=== PATIENT | female | born 1975 | race Caucasian/White ===

== ENCOUNTER 2022-08-28 20:10 | Emergency (ER) | payer MEDICAID, SELFPAY ==
[2022-08-28 20:12] VITALS: BP 138/87; PULSE 99; RESP 16; TEMP 36.8; O2SAT 96; BMI 41.5
--- NOTE | 2022-08-28 20:15 | W.ED.AMS ---
HPI - Altered Mental Status General: Chief Complaint: General Medical Stated Complaint: AMS Time Seen by Provider: 08/28/22 20:13 History of Present Illness: Ms. Martinez is a 47-year-old lady with history of opioid use disorder and currently IV heroin abuse presented to the emergency department due to leg pain where she has been injecting. She reports onset of worsening right leg pain a number of months ago however became more concerned recently as she was reading and thought it could be a blood clot. Endorses hard bumps where she injects as well as increased pain in the calf. Intensity symptoms have worsened and now become moderate to severe with ambulation. Denies fevers, shortness of breath, chest pain or other signs systemic illness. No history of blood clots reported. No other specific changes in health, exacerbating, or alleviating factors identified. Onset (ago): week(s) Severity: moderate Consistency of symptoms: Getting Worse Context: drug abuse Associated symptoms: Deny homicidal ideation or suicidal ideation Review of Systems General: Reports: 10 or more systems reviewed and unremarkable except in HPI and below Psych: Denies: suicidal ideation or homicidal ideation PFSH ED PFSH: Medical History Opioid abuse Surgical History History of section History of common bile duct surgery History of tubal ligation Family History Other Hypertension Denies family history of Bleeding disorder Social History Substance/Drug Use: current Physical Exam Const: COMMON NORMALS: alert GENERAL APPEARANCE: cooperative and well developed HENMT: COMMON NORMALS: normocephalic and atraumatic HEAD & SCALP: normocephalic and atraumatic Eye: COMMON NORMALS: conjunctivae normal CONJUNCTIVA: Yes conjunctivae normal SCLERA: sclerae normal Neck/C-Spine: COMMON NORMALS: supple GENERAL: Yes trachea midline Resp: COMMON NORMALS: normal respiratory effort and clear to auscultation bilaterally EFFORT & INSPECTION: Yes able to speak in complete sentences AUSCULTATION: clear to auscultation bilaterally Cardio: COMMON NORMALS: regular rate, regular rhythm and No murmurs present (Cardio) RATE: regular rate RHYTHM: regular rhythm GI: COMMON NORMALS: Soft to palpation PALPATION: Yes Soft to palpation and No Tenderness to palpation present (GI) Extremity: NARRATIVE EXTREMITY EXAM: Bilateral lower extremity edema, there are few areas scattered areas of induration, mild tenderness to palpation of the right knee no evidence of septic joint or joint effusion. GENERAL: Yes normal exam except as noted and Yes edema Neuro: COMMON NORMALS: moves all extremities SENSORIUM/ORIENTATION: Yes alert and No Orientation impaired Psych: COMMON NORMALS: mental status grossly normal and Normal thought process present THOUGHT PROCESS: Normal thought process present Course Vital Signs: Vital signs: Vital Signs Temperature 98.2 F 08/28/22 20:12 Pulse Rate 85 08/28/22 22:41 Respiratory Rate 18 08/28/22 22:41 Blood Pressure 133/82 08/28/22 22:41 Pulse Oximetry 96 08/28/22 22:41 Oxygen Delivery Me thod 08/28/22 20:12 MDM - Altered Mental Status Medical Decision Making 47-year-old lady presenting with neck pain worse on the right in the context of IV drug use. Exam as above.. No leukocytosis, inflammatory markers are essentially negative. No foreign body identified on x-rays, negative ultrasound for DVT. On additional discussion the patient does have a history of lower extremity edema and had improvement with Lasix. She desires to try this again. Edema may be a reason explanation for symptoms though certainly IV drug abuse does not help. I discussed IV drug abuse cessation with the patient. The results of ED evaluation were discussed with the patient including prescriptions and/or symptomatic cares (if applicable) including appropriate and responsible use, followup plan, and return precautions. The patient verbalized understanding and felt safe for discharge. Medical Records I reviewed the patient's medical records. Lab Data I reviewed the patient's lab results. 08/28/22 21:03 08/28/22 21:03 Radiology Impressions Tibia/Fibula X-Ray 08/28/22 20:22 IMPRESSION: 1. Possible posterior malleolar mildly displaced fracture on the lateral view versus an exophytic bony lesion, please correlate clinically, CT scan could further evaluate this. 2. Negative for radiodense foreign body. Venous Duplex 08/28/22 20:22 IMPRESSION: Negative for deep venous thrombosis. Ankle X-Ray 08/28/22 21:12 IMPRESSION: 21 mm by 5.9 mm calcification seen along the posterior malleolus appears to reflect a small osteochondroma. Laboratory Results WBC 6.5 10^3/uL (4.0-10.0) 08/28/22 21:03 RBC 4.09 10^6/uL (4.1-5.3) L 08/28/22 21:03 Hgb 12.2 g/dL (11.5-15.3) 08/28/22 21:03 Hct 37.8 % (37.0-47.0) 08/28/22 21:03 MCV 92.4 fl (81-99) 08/28/22 21:03 MCH 29.8 pg (28.0-34.0) 08/28/22 21: MCHC 32.3 g/dL (30.0-36.0) 08/28/22 21:03 RDW 12.8 % (12.1-15.1) 08/28/22 21:03 Plt Count 263 10^3/cmm (130-400) 08/28/22 21:03 MPV 10.7 fL (7.4-10.4) H 08/28/22 21:03 Neut % (Auto) 82.2 % 08/28/22 21: Lymph % (Auto) 13.2 % 08/28/22 21:03 [place] % (Auto) 2.9 % 08/28/22 21:03 Eos % (Auto) 0.5 % 08/28/22 21: Baso % (Auto) 0.9 % 08/28/22:03 Neut # (Auto) 5.37 10^3/uL (1.8-7.7) 08/28/22 21:03 Lymph # (Auto) 0.9 10^3/uL (0.8-4.8) 08/28/22 21:03 [place] # (Auto) 0.2 10^3/uL (0.2-0.9) 08/28/22 21:03 Eos # (Auto) 0.0 10^3/uL (0.0-0.8) 08/28/22 21:03 Baso # (Auto) 0.1 10^3/uL (0.0-0.1) 08/28/22 21:03 Nucleated RBC % (auto) 0 % 08/28/22 21:03 Nucleated RBCs # 0.0 /100WBC 08/28/22 21:03 ESR 9 mm/hr (0-15) 08/28/22 21:03 Sodium 136 mmol/L (136-145) 08/28/22 21:03 Potassium 4.2 mmol/L (3.5-5.1) 08/28/22 21:03 Chloride 101 mmol/L (98-107) 08/28/22 21:03 Carbon Dioxide 27 mmol/L (22-29) 08/28/22 21:03 Anion Gap 12.2 (5-19) 08/28/22 21:03 BUN 16 mg/dL (6-20) 08/28/22 21:03 Creatinine 0.8 mg/dL (0.5-0.9) 08/28/22 21:03 GFR Calculation 77.2 mL/min (90-130) L 08/28/22 21:03 Glucose 100 mg/dL (65-115) 08/28/22 21:03 Calculated Osmolality 283 mOsm/kg (285-295) L 08/28/22 21:03 Calcium 8.8 mg/dL (8.5-10.5) 08/28/22 21:03 Total Bilirubin 0.4 mg/dL (0.15-1.2) 08/28/22 21:03 AST 13 U/L (0-32) 08/28/22 21:03 ALT 9 U/L (0-33) 08/28/22 21:03 Alkaline Phosphatase 73 U/L (35-105) 08/28/22 21:03 C-Reactive Protein 5.1 mg/L (0.0-4.9) H 08/28/22 21:03 Total Protein 7.6 g/dL (6.6-8.7) 08/28/22 21:03 Albumin 4.2 g/dL (3.5-5.2) 08/28/22 21:03 Globulin 3.4 g/dL (1.3-4.6) 08/28/22 21:03 HCG, Qual Negative (Negative) 08/28/22 21:55 Discharge Plan Discharge Patient Disposition: Home Clinical Impression: Leg pain, Edema, peripheral, IVDU (intravenous drug user), Opioid abuse Condition: Stable Prescriptions: New Lasix 40 mg tablet 40 mg PO QAM Qty: 20 0RF potassium chloride 10 mEq tablet extended release 10 meq PO DAILY Qty: 20 0RF No Action dextroamphetamine-amphetamine [Adderall] 10 mg tablet 10 mg PO BID Rx Instructions: administer doses at least 4-6 hours apart buprenorphine HCl 2 mg tablet, sublingual 2 mg sublingual .TIB Discharge Orders: Discharge ED (Routine); Ordered 08/28/22 Ordered By: Eliecer Butler Other Ambulatory Orders: Basic Metabolic Panel (Routine) Timeframe: 1 Week Facility: [facility] - Location: Lab - Main Lab Ordered By: Eliecer Butler Referrals: Jayme Roy, MONAC [Primary Care Provider] - Discharge Diet: Low Salt and Low Fat Discharge Activity: Increase activity as tolerated Patient Instructions: Furosemide (By mouth) (Lasix), Leg Edema (ED), Leg Pain (ED), Opioid Use Disorder (ED) Activity Restrictions/Additional Instructions: Thank you for visiting the emergency department. You were seen and evaluated for leg pain. The exact cause of your symptoms is unclear though may be related to musculoskeletal pain and edema. Given improvement in the past with Lasix I will prescribe this. This requires follow-up with repeat laboratory testing as discussed. I will place an order so you may get the repeat laboratory studies done at our lab. You should also follow-up with a primary care provider. Please stop abusing opioids, failure to stop abusing opioids will likely lead to or worse. Return to the emergency department for anything that you are concerned about and feel needs emergency department evaluation. Coding Level of Care Code ED Powerhouse Operator for Radha Manuel
--- NOTE | 2022-08-28 20:22 | USR_ITS ---
PROCEDURE INFORMATION: Exam: US Duplex Lower Extremity Veins, Bilateral Exam date and time: 08/28/2022 9:07 PM Age: 47 years old Clinical indication: Leg, upper and leg, lower; Bilateral; Patient HX: Ble edema and pain x 6 months. No history of dvt per patient. ; Additional info: Swelling, pain r>l, ivdu TECHNIQUE: Imaging protocol: Real-time Duplex ultrasound of the bilateral extremities with 2-D camara scale, color Doppler flow and spectral waveform analysis with image documentation. Complete exam focused on the bilateral lower extremity veins. COMPARISON: CR (LOW EXM, ) 08/28/2022 8:43 PM FINDINGS: Right deep veins: Unremarkable. The common femoral, femoral, proximal profunda femoral and popliteal veins are patent without thrombus. Normal Doppler waveforms. Normal compressibility and/or augmentation response. Right superficial veins: Saphenofemoral junction is patent without thrombus. Left deep veins: Unremarkable. The common femoral, femoral, proximal profunda femoral and popliteal veins are patent without thrombus. Normal Doppler waveforms. Normal compressibility and/or augmentation response. Left superficial veins: Saphenofemoral junction is patent without thrombus. Soft tissues: Bilateral lower extremity subcutaneous [place]. US/[place] [id number] IMPRESSION: Negative for deep venous thrombosis.
--- NOTE | 2022-08-28 20:22 | XRR_ITS ---
PROCEDURE INFORMATION: Exam: XR Right Tibia and Fibula Exam date and time: 08/28/2022 8:43 PM Age: 47 years old Clinical indication: Pain; Knee; Right; Additional info: Ivdu, ? foreign body calf TECHNIQUE: Imaging protocol: Radiologic exam of the Right tibia and fibula. Views: 2 views. COMPARISON: No relevant prior studies available. FINDINGS: Bones/joints: Possible posterior malleolar mildly displaced fracture on the lateral view versus an exophytic bony lesion, please correlate clinically, CT scan could further evaluate this. Soft tissues: Normal. XR/XR tibia fibula RT 2V [id number] IMPRESSION: 1. Possible posterior malleolar mildly displaced fracture on the lateral view versus an exophytic bony lesion, please correlate clinically, CT scan could further evaluate this. 2. Negative for radiodense foreign body.
--- NOTE | 2022-08-28 21:12 | XRR_ITS ---
PROCEDURE INFORMATION: Exam: XR Right Ankle Exam date and time: 08/28/2022 9:22 PM Age: 47 years old Clinical indication: Pain; Ankle; Right; Additional info: Abnormal appearance on xray, reeval TECHNIQUE: Imaging protocol: Radiologic exam of the Right ankle. Views: 3 or more views. COMPARISON: CR (LOW EXM, ) 08/28/2022 8:43 PM FINDINGS: Bones/joints: 21 mm by 5.9 mm calcification seen along the posterior malleolus appears to reflect a small osteochondroma. Soft tissues: Normal. XR/XR ankle RT min 3V* [id number] IMPRESSION: 21 mm by 5.9 mm calcification seen along the posterior malleolus appears to reflect a small osteochondroma.
[2022-08-28 21:17] LABS: Basophils # 0.1 10^3/uL (0.0-0.1); Basophils % 0.9 %; Eosinophils % 0.5 %; Hematocrit 37.8 % (37.0-47.0); Hemoglobin 12.2 g/dL (11.5-15.3); Lymphocytes # 0.9 10^3/uL (0.8-4.8); Lymphocytes % 13.2 %; Mean Corpuscular HGB Conc 32.3 g/dL (30.0-36.0); Mean Corpuscular Hemoglobin 29.8 pg (28.0-34.0); Mean Corpuscular Volume 92.4 fl (81-99); Mean Platelet Volume 10.7 fL (7.4-10.4); Monocytes # 0.2 10^3/uL (0.2-0.9); Monocytes % 2.9 %; Neutrophils # 5.37 10^3/uL (1.8-7.7); Neutrophils % 82.2 %; Nucleated Red Blood Cells % 0 %; Platelet Count 263 10^3/cmm (130-400); Red Blood Count 4.09 10^6/uL (4.1-5.3); Red Cell Distribution Width 12.8 % (12.1-15.1); White Blood Count 6.5 10^3/uL (4.0-10.0)
[2022-08-28 21:27] LABS: Erythrocyte Sedimentation Rate 9 mm/hr (0-15)
[2022-08-28 21:40] LABS: Alanine Aminotransferase 9 U/L (0-33); Albumin Level 4.2 g/dL (3.5-5.2); Alkaline Phosphatase 73 U/L (35-105); Anion Gap 12.2 (5-19); Aspartate Amino Transferase 13 U/L (0-32); Blood Urea Nitrogen 16 mg/dL (6-20); Calcium 8.8 mg/dL (8.5-10.5); Carbon Dioxide 27 mmol/L (22-29); Chloride 101 mmol/L (98-107); Globulin 3.4 g/dL (1.3-4.6); Glomerular Filtration Rate 77.2 mL/min (90-130); Glucose 100 mg/dL (65-115); Osmolality Calculated 283 mOsm/kg (285-295); Potassium 4.2 mmol/L (3.5-5.1); Sodium 136 mmol/L (136-145); Total Bilirubin 0.4 mg/dL (0.15-1.2); Total Protein 7.6 g/dL (6.6-8.7)
[2022-08-28 21:42] LABS: C Reactive Protein 5.1 mg/L (0.0-4.9)
[2022-08-28 22:00] VITALS: BP 108/86; PULSE 88; RESP 18; O2SAT 96
[2022-08-28 22:06] LABS: HCG Qualitative Urine. Negative (Negative)
[2022-08-28 22:41] VITALS: BP 133/82; PULSE 85; RESP 18; O2SAT 96
== END 2022-08-28 22:42 | disposition home or self-care (01) ==
PROVIDERS: Emergency Provider Emergency Medicine; PCP Nurse Practitioner
DX: M79.604 Pain in right leg (principal); R60.0 Localized edema; F11.10 Opioid abuse, uncomplicated
CPT/HCPCS: 73590; 73610; 80053; 81025; 85025; 85651; 86140; 87040; 93970; 99284

== ENCOUNTER 2023-08-05 19:15 | Emergency (ER) | payer SELFPAY ==
[2023-08-05 19:18] VITALS: BP 152/90; PULSE 85; RESP 22; TEMP 36.5; O2SAT 97; BMI 38.2
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
== END 2023-08-05 20:12 | disposition home or self-care (01) ==
PROVIDERS: Emergency Provider Internal Medicine; PCP Nurse Practitioner
DX: Z04.1 Encounter for examination and observation following transport accident (principal); F10.10 Alcohol abuse, uncomplicated
CPT/HCPCS: 99281

== ENCOUNTER 2023-12-17 04:50 | Emergency (ER) | payer SELFPAY ==
[2023-12-17 04:51] VITALS: BP 147/99; PULSE 98; RESP 24; TEMP 36.7; O2SAT 91; BMI 38.2
--- NOTE | 2023-12-17 05:15 | W.ED.GENADLT ---
Documented by User: Janusz Villegas DO 12/17/23 05:19 HPI - General Adult General: Chief complaint: General Medical Stated complaint: withdrawal Time Seen by Provider: 12/17/23 04:51 History of Present Illness: Patient presents here by [facility] with complaints of fentanyl withdrawals. Patient says she has been shooting up in her legs for the last 4 years and she shoots all kinds of things up her legs fentanyl or heroin up to 10-15 times a day but she has not done either for the last 11 days. Patient has been taking some Xanax which she says helped with withdrawals. Patient does appear anxious is breathing fast and has tremors. Patient is alert and oriented x 4. Patient ambulated from the cot to the stretcher and then to the bathroom without difficulty. Patient says she has a appointment at the methadone clinic at 6 AM this morning to get established. Review of Systems General: Reports: 10 or more systems reviewed and unremarkable except in HPI and below PFSH ED PFSH: Medical History Opioid abuse Surgical History History of tubal ligation History of section History of common bile duct surgery Family History Other Hypertension Denies family history of Bleeding disorder Social History Substance/Drug Use: current Female Reproductive History: Date of last menstrual period: 12/17/23 Physical Exam Const: COMMON NORMALS: no acute distress, average body habitus, patient oriented x3, no limitations, healthy appearing, alert and well nourished HENMT: COMMON NORMALS: normocephalic, atraumatic, hearing grossly normal bilaterally and external ears normal HEAD & SCALP: normocephalic and atraumatic EXTERNAL EAR: Yes external ears normal Neck/C-Spine: COMMON NORMALS: no JVD Chest: COMMONS NORMALS: normal inspection of the chest and normal palpation of entire chest wall Resp: COMMON NORMALS: normal respiratory effort, No retractions, No use of accessory muscles and clear to auscultation bilaterally AUSCULTATION: clear to auscultation bilaterally Cardio: COMMON NORMALS: no JVD, regular rate, regular rhythm, S1 normal heart sound present, S2 normal heart sound present, No gallops present (Cardio), No clicks present (Cardio), No murmurs present (Cardio) and No rub (Cardio) RATE: regular rate RHYTHM: regular rhythm HEART SOUNDS: S1 normal heart sound present and S2 normal heart sound present GI: COMMON NORMALS: Normal to inspection, nondistended, normoactive bowel sounds present, Soft to palpation, non-tender, No hepatosplenomegaly present and no masses PALPATION: Yes Soft to palpation and Yes No hepatosplenomegaly present Neuro: COMMON NORMALS: patient oriented x3 SENSORIUM/ORIENTATION: Yes alert Course Vital Signs: Vital signs: Vital Signs Temperature 98.1 F 12/17/23 07:59 Pulse Rate 87 12/17/23 07:59 Respiratory Rate 16 12/17/23 07:59 Blood Pressure 154/116 12/17/23 07:59 Pulse Oximetry 100 12/17/23 07:59 Oxygen Delivery Me thod Room Air 12/17/23 04:51 [facility] - General Adult Lab Data 12/17/23 05:55 12/17/23 05:55 Laboratory Results WBC 5.12 10^3/uL (3.29-11.43) 12/17/23 05:55 RBC 4.30 10^6/uL (3.85-5.65) 12/17/23 05:55 Hgb 12.60 g/dL (11.27-16.99) 12/17/23 05:55 Hct 38.3 % (36-47) 12/17/23 05:55 MCV 89.1 fl (85-98) 12/17/23 05:55 MCH 29.3 pg (27-33) 12/17/23 05:55 MCHC 32.9 g/dL (30-55) 12/17/23 05:55 RDW 13.9 % (12.1-15.1) 12/17/23 05:55 Plt Count 272 10^3/cmm (157-399) 12/17/23 05:55 MPV 9.9 fL (7.4-10.4) 12/17/23 05:55 Neut % (Auto) 60.7 % 12/17/23 05:55 Lymph % (Auto) 31.1 % 12/17/23 05:55 Camp % (Auto) 7.0 % 12/17/23 05:55 Eos % (Auto) 0.4 % 12/17/23 05:55 Baso % (Auto) 0.8 % 12/17/23 05:55 Neut # (Auto) 3.11 10^3/uL (1.8-7.7) 12/17/23 05:55 Lymph # (Auto) 1.6 10^3/uL (0.8-4.8) 12/17/23 05:55 Camp # (Auto) 0.4 10^3/uL (0.2-0.9) 12/17/23 05:55 Eos # (Auto) 0.0 10^3/uL (0.0-0.8) 12/17/23 05:55 Baso # (Auto) 0.0 10^3/uL (0.0-0.1) 12/17/23 05:55 Nucleated RBC % (auto) 0 % 12/17/23 05:55 Nucleated RBCs # 0.0 /100WBC 12/17/23 05:55 Sodium 139 mmol/L (136-145) 12/17/23 05:55 Potassium 3.8 mmol/L (3.5-5.1) 12/17/23 05:55 Chloride 103 mmol/L (98-107) 12/17/23 05:55 Carbon Dioxide 24 mmol/L (22-29) 12/17/23 05:55 Anion Gap 15.8 (5-19) 12/17/23 05:55 BUN 7 mg/dL (6-20) 12/17/23 05:55 Creatinine 0.8 mg/dL (0.5-0.9) 12/17/23 05:55 GFR Calculation 76.9 mL/min (90-130) L 12/17/23 05:55 Glucose 95 mg/dL (65-115) 12/17/23 05:55 Calculated Osmolality 286 mOsm/kg (285-295) 12/17/23 05:55 Calcium 9.2 mg/dL (8.5-10.5) 12/17/23 05:55 Magnesium 2.2 mg/dL (1.7-2.3) 12/17/23 05:55 Total Bilirubin 0.5 mg/dL (0.15-1.2) 12/17/23 05:55 AST 13 U/L (0-32) 12/17/23 05:55 ALT 15 U/L (0-33) 12/17/23 05:55 Alkaline Phosphatase 70 U/L (35-105) 12/17/23 05:55 Total Protein 7.8 g/dL (6.6-8.7) 12/17/23 05:55 Albumin 4.3 g/dL (3.5-5.2) 12/17/23 05:55 Globulin 3.5 g/dL (1.3-4.6) 12/17/23 05:55 Urine Color Yellow (Yellow) 12/17/23 06:13 Urine Appearance Hazy (CLEAR) A 12/17/23 06:13 Urine pH 7 (5-7) 12/17/23 06:13 Ur Specific [place] 1.005 (1.005-1.030) 12/17/23 06:13 Urine Protein Trace (Negative) 12/17/23 06:13 Urine Glucose (UA) Norm (Normal) 12/17/23 06:13 Urine Ketones 1+ (Negative) H 12/17/23 06:13 Urine Blood 3+ (Negative) H 12/17/23 06:13 Urine Nitrate Negative (Negative) 12/17/23 06:13 Urine Bilirubin 1+ (Negative) H 12/17/23 06:13 Urine Urobilinogen 1 mg/dL (Negative) H 12/17/23 06:13 Ur Leukocyte Esterase Negative (Negative) 12/17/23 06:13 Urine RBC 0-4 /hpf (0-2) H 12/17/23 06:13 Urine WBC 0-4 /hpf (0-5) H 12/17/23 06:13 Ur Squamous Epith Cells 5-10 /hpf (0-5) H 12/17/23 06:13 Amorphous Sediment Not Reportable 12/17/23 06:13 Urine Bacteria 1+ /hpf (NONE) H 12/17/23 06:13 Urine Mucus 1+ /hpf 12/17/23 06:13 Urine Opiates Screen Negative ng/mL (Negative) 12/17/23 06:13 Ur Barbiturates Screen Negative ng/mL (Negative) 12/17/23 06:13 Ur Phencyclidine Scrn Negative ng/mL (Negative) 12/17/23 06:13 Ur Amphetamines Screen Positive ng/mL (Negative) H 12/17/23 06:13 U Benzodiazepines Scrn Positive ng/mL (Negative) H 12/17/23 06:13 Urine Cocaine Screen Negative ng/mL (Negative) 12/17/23 06:13 U Marijuana (THC) Screen Positive ng/mL (Negative) H 12/17/23 06:13 Discharge Plan Discharge Patient Disposition: Home Clinical Impression: Polysubstance abuse, HTN (hypertension) Condition: Stable Prescriptions: New amlodipine 2.5 mg tablet 2.5 mg PO DAILY Qty: 14 0RF No Action Xanax 1 mg Tablet 1 mg PO TID PRN (Reason: Anxiety) Klonopin 0.5 mg Tablet 0.5 mg PO .ONE TIME DOSE potassium gluconate 595 mg (99 mg) Tablet 595 mg PO DAILY Lasix 40 mg tablet 40 mg PO .UP TO BID Discharge Orders: Discharge ED (Routine); Ordered 12/17/23 Ordered By: Cristobal Joyce Referrals: Jayme Roy, [place] [Nurse Practitioner] - Discharge Diet: Usual diet Patient Instructions: Opioid Safety, Pain Management Activity Restrictions/Additional Instructions: Thank you for choosing [facility] for your healthcare needs today. Please realize this is an emergency room and that we are providing you with a medical screening exam and this may not be complete and all inclusive of all the testing and or work up that you may need to determine your ailment or severity of your illness. It is very important that you follow up as instructed or that you return to the Emergency Department should you have concerns or if your condition changes or worsens in any way. You are seen today for concerns of withdrawal. You have stated you had used any fentanyl for 11 days. 11 days after last use withdrawal issues from fentanyl should not be a particular issue. Your urine drug screen was positive for marijuana and methamphetamines. Your blood pressure was elevated as well. Your white count was normal the remainder of your labs did not show clinically significant abnormality. You were given a single dose of Ativan in the emergency room. There were no signs of DVT or infection at this time. Would recommend for blood pressure restart amlodipine 2.5 mg daily. Recommend that you avoid use of marijuana methamphetamine and fentanyl. Follow-up with your primary care doctor within the next 3 to 4 days to reevaluate blood pressure. Also recommend you be evaluated at [facility] to help manage her substance abuse issues. Sign Out Sign Out Data: Patient Sign Out occurred on 12/17/23 at 06:18. Patient's care was discussed, and care was transferred from Janusz Villegas DO to Cristobal Joyce DO. Coding Level of Care Code ED Supervisor Elementary Education for Chg Fwd Documented by User: Cristobal Joyce DO 12/17/23 09:53 HPI - General Adult General: Chief complaint: General Medical Stated complaint: withdrawal Time Seen by Provider: 12/17/23 04:51 PFSH ED PFSH: Medical History Opioid abuse Surgical History History of tubal ligation History of section History of common bile duct surgery Family History Other Hypertension Denies family history of Bleeding disorder Social History Substance/Drug Use: current Course Vital Signs: Vital signs: Vital Signs Temperature 98.1 F 12/17/23 07:59 Pulse Rate 87 12/17/23 07:59 Respiratory Rate 16 12/17/23 07:59 Blood Pressure 154/116 12/17/23 07:59 Pulse Oximetry 100 12/17/23 07:59 Oxygen Delivery Me thod Room Air 12/17/23 04:51 MDM - General Adult Medical Decision Making Care assumed at change of shift. Patient told nursing staff she had used meth within the last few days when I talk to her states that it been nearly 2 weeks and that the type of mass she uses stays in her symptoms system prolonged time because she is overweight. She states it has been over 2 weeks since she used methamphetamines. She is also positive for marijuana. She tells me she had been using fentanyl regularly up until 11 days ago. She makes various requests for antibiotics Ativan Lasix and potassium. She does not have significant edema at this time and do not recommend Lasix and potassium. There is no sign of infection reexamined her she was particularly concerned about her knees there is no joint effusion no erythema no inflammation no overlying infection no's superficial infections or abscesses are noted she does have a lot of scarring and discoloration from previous injection she states she had injected the fentanyl in her legs at times in the past there is no fresh track lanza or signs of cellulitis at this time. Concerned with her polypharmacy with prescribing Ativan. She is already been using alprazolam and Klonopin she has been using another person's Xanax prescription. She does tell me she is supposed to be going to the methadone clinic to get started on methadone there recommend following with primary care and with the methadone clinic also recommend evaluation with [facility] for assistance with polysubstance abuse Medical Records I reviewed the patient's medical records. Lab Data I reviewed the patient's lab results. 12/17/23 05:55 12/17/23 05:55 Laboratory Results WBC 5.12 10^3/uL (3.29-11.43) 12/17/23 05:55 RBC 4.30 10^6/uL (3.85-5.65) 12/17/23 05:55 Hgb 12.60 g/dL (11.27-16.99) 12/17/23 05:55 Hct 38.3 % (36-47) 12/17/23 05:55 MCV 89.1 fl (85-98) 12/17/23 05:55 MCH 29.3 pg (27-33) 12/17/23 05:55 MCHC 32.9 g/dL (30-55) 12/17/23 05:55 RDW 13.9 % (12.1-15.1) 12/17/23 05:55 Plt Count 272 10^3/cmm (157-399) 12/17/23 05:55 MPV 9.9 fL (7.4-10.4) 12/17/23 05:55 Neut % (Auto) 60.7 % 12/17/23 05:55 Lymph % (Auto) 31.1 % 12/17/23 05:55 Camp % (Auto) 7.0 % 12/17/23 05:55 Eos % (Auto) 0.4 % 12/17/23 05:55 Baso % (Auto) 0.8 % 12/17/23 05:55 Neut # (Auto) 3.11 10^3/uL (1.8-7.7) 12/17/23 05:55 Lymph # (Auto) 1.6 10^3/uL (0.8-4.8) 12/17/23 05:55 Camp # (Auto) 0.4 10^3/uL (0.2-0.9) 12/17/23 05:55 Eos # (Auto) 0.0 10^3/uL (0.0-0.8) 12/17/23 05:55 Baso # (Auto) 0.0 10^3/uL (0.0-0.1) 12/17/23 05:55 Nucleated RBC % (auto) 0 % 12/17/23 05:55 Nucleated RBCs # 0.0 /100WBC 12/17/23 05:55 Sodium 139 mmol/L (136-145) 12/17/23 05:55 Potassium 3.8 mmol/L (3.5-5.1) 12/17/23 05:55 Chloride 103 mmol/L (98-107) 12/17/23 05:55 Carbon Dioxide 24 mmol/L (22-29) 12/17/23 05:55 Anion Gap 15.8 (5-19) 12/17/23 05:55 BUN 7 mg/dL (6-20) 12/17/23 05:55 Creatinine 0.8 mg/dL (0.5-0.9) 12/17/23 05:55 GFR Calculation 76.9 mL/min (90-130) L 12/17/23 05:55 Glucose 95 mg/dL (65-115) 12/17/23 05:55 Calculated Osmolality 286 mOsm/kg (285-295) 12/17/23 05:55 Calcium 9.2 mg/dL (8.5-10.5) 12/17/23 05:55 Magnesium 2.2 mg/dL (1.7-2.3) 12/17/23 05:55 Total Bilirubin 0.5 mg/dL (0.15-1.2) 12/17/23 05:55 AST 13 U/L (0-32) 12/17/23 05:55 ALT 15 U/L (0-33) 12/17/23 05:55 Alkaline Phosphatase 70 U/L (35-105) 12/17/23 05:55 Total Protein 7.8 g/dL (6.6-8.7) 12/17/23 05:55 Albumin 4.3 g/dL (3.5-5.2) 12/17/23 05:55 Globulin 3.5 g/dL (1.3-4.6) 12/17/23 05:55 Urine Color Yellow (Yellow) 12/17/23 06:13 Urine Appearance Hazy (CLEAR) A 12/17/23 06:13 Urine pH 7 (5-7) 12/17/23 06:13 Ur Specific [place] 1.005 (1.005-1.030) 12/17/23 06:13 Urine Protein Trace (Negative) 12/17/23 06:13 Urine Glucose (UA) Norm (Normal) 12/17/23 06:13 Urine Ketones 1+ (Negative) H 12/17/23 06:13 Urine Blood 3+ (Negative) H 12/17/23 06:13 Urine Nitrate Negative (Negative) 12/17/23 06:13 Urine Bilirubin 1+ (Negative) H 12/17/23 06:13 Urine Urobilinogen 1 mg/dL (Negative) H 12/17/23 06:13 Ur Leukocyte Esterase Negative (Negative) 12/17/23 06:13 Urine RBC 0-4 /hpf (0-2) H 12/17/23 06:13 Urine WBC 0-4 /hpf (0-5) H 12/17/23 06:13 Ur Squamous Epith Cells 5-10 /hpf (0-5) H 12/17/23 06:13 Amorphous Sediment Not Reportable 12/17/23 06:13 Urine Bacteria 1+ /hpf (NONE) H 12/17/23 06:13 Urine Mucus 1+ /hpf 12/17/23 06:13 Urine Opiates Screen Negative ng/mL (Negative) 12/17/23 06:13 Ur Barbiturates Screen Negative ng/mL (Negative) 12/17/23 06:13 Ur Phencyclidine Scrn Negative ng/mL (Negative) 12/17/23 06:13 Ur Amphetamines Screen Positive ng/mL (Negative) H 12/17/23 06:13 U Benzodiazepines Scrn Positive ng/mL (Negative) H 12/17/23 06:13 Urine Cocaine Screen Negative ng/mL (Negative) 12/17/23 06:13 U Marijuana (THC) Screen Positive ng/mL (Negative) H 12/17/23 06:13 No radiology studies performed this visit Discharge Plan Discharge Patient Disposition: Home Clinical Impression: Polysubstance abuse, HTN (hypertension) Condition: Stable Prescriptions: New amlodipine 2.5 mg tablet 2.5 mg PO DAILY Qty: 14 0RF No Action Xanax 1 mg Tablet 1 mg PO TID PRN (Reason: Anxiety) Klonopin 0.5 mg Tablet 0.5 mg PO .ONE TIME DOSE potassium gluconate 595 mg (99 mg) Tablet 595 mg PO DAILY Lasix 40 mg tablet 40 mg PO .UP TO BID Discharge Orders: Discharge ED (Routine); Ordered 12/17/23 Ordered By: Cristobal Joyce Referrals: Jayme Roy, [place] [Nurse Practitioner] - Discharge Diet: Usual diet Patient Instructions: Opioid Safety, Pain Management Activity Restrictions/Additional Instructions: Thank you for choosing [facility] for your healthcare needs today. Please realize this is an emergency room and that we are providing you with a medical screening exam and this may not be complete and all inclusive of all the testing and or work up that you may need to determine your ailment or severity of your illness. It is very important that you follow up as instructed or that you return to the Emergency Department should you have concerns or if your condition changes or worsens in any way. You are seen today for concerns of withdrawal. You have stated you had used any fentanyl for 11 days. 11 days after last use withdrawal issues from fentanyl should not be a particular issue. Your urine drug screen was positive for marijuana and methamphetamines. Your blood pressure was elevated as well. Your white count was normal the remainder of your labs did not show clinically significant abnormality. You were given a single dose of Ativan in the emergency room. There were no signs of DVT or infection at this time. Would recommend for blood pressure restart amlodipine 2.5 mg daily. Recommend that you avoid use of marijuana methamphetamine and fentanyl. Follow-up with your primary care doctor within the next 3 to 4 days to reevaluate blood pressure. Also recommend you be evaluated at [facility] to help manage her substance abuse issues. Sign Out Sign Out Data: Patient Sign Out occurred on 12/17/23 at 06:18. Patient's care was discussed, and care was transferred from Janusz Villegas DO to Cristobal Joyce DO. Coding Level of Care Code ED Supervisor Elementary Education for Radha Manuel
[2023-12-17 05:57] VITALS: BP 184/117; PULSE 87; RESP 16; O2SAT 100
[2023-12-17 06:00] LABS: Basophils % 0.8 %; Eosinophils % 0.4 %; Hematocrit 38.3 % (36-47); Lymphocytes # 1.6 10^3/uL (0.8-4.8); Lymphocytes % 31.1 %; Mean Corpuscular HGB Conc 32.9 g/dL (30-55); Mean Corpuscular Hemoglobin 29.3 pg (27-33); Mean Corpuscular Volume 89.1 fl (85-98); Mean Platelet Volume 9.9 fL (7.4-10.4); Monocytes # 0.4 10^3/uL (0.2-0.9); Neutrophils # 3.11 10^3/uL (1.8-7.7); Neutrophils % 60.7 %; Nucleated Red Blood Cells % 0 %; Platelet Count 272 10^3/cmm (157-399); Red Cell Distribution Width 13.9 % (12.1-15.1); White Blood Count 5.12 10^3/uL (3.29-11.43)
[2023-12-17] MEDS: sodium chloride 0.9% 1,000 ML 999 ML IV (06:09)
[2023-12-17 06:18] LABS: Alanine Aminotransferase 15 U/L (0-33); Albumin Level 4.3 g/dL (3.5-5.2); Alkaline Phosphatase 70 U/L (35-105); Anion Gap 15.8 (5-19); Aspartate Amino Transferase 13 U/L (0-32); Blood Urea Nitrogen 7 mg/dL (6-20); Calcium 9.2 mg/dL (8.5-10.5); Carbon Dioxide 24 mmol/L (22-29); Chloride 103 mmol/L (98-107); Creatinine Clr Calc Pharmacy 104.2066; Globulin 3.5 g/dL (1.3-4.6); Glomerular Filtration Rate 76.9 mL/min (90-130); Glucose 95 mg/dL (65-115); Magnesium 2.2 mg/dL (1.7-2.3); Osmolality Calculated 286 mOsm/kg (285-295); Potassium 3.8 mmol/L (3.5-5.1); Sodium 139 mmol/L (136-145); Total Bilirubin 0.5 mg/dL (0.15-1.2); Total Protein 7.8 g/dL (6.6-8.7)
--- NOTE | 2023-12-17 06:29 | PC.PHAR ---
Addendum entered by Lissa Coleman 12/17/23 07:41: pt states she takes her friends medications-pt states she has been taking the medications entered and some other illegal drugs-ext doesnt show any medications filled recently-pt states since she got out of [facility] she hasnt had adderall or buprenorphine-pt states 2 weeks ago she took some of her friends clindamycin bid for 3 days Original Note: pt wont wake up to verify medications-will try to go back in and verify when pt more alert
[2023-12-17 06:41] LABS: Amphetamines Screen Urine Positive (Negative); Barbiturates Screen Urine Negative (Negative); Benzodiazepines Screen Urine Positive (Negative); Cocaine Screen Urine Negative (Negative); Opiate Screen Urine Negative (Negative); PCP Screen Urine Negative (Negative); THC Screen Urine Positive (Negative)
[2023-12-17 06:54] LABS: Blood Urine 3+ (Negative); Glucose Urine UA Norm (Normal); Ketones Urine 1+ (Negative); Protein Urine Trace (Negative); Specific Gravity, Urine 1.005 (1.005-1.030); Urine Appearance Hazy (CLEAR); Urine Color Yellow (Yellow); pH Urine 7 (5-7)
[2023-12-17 06:55] LABS: Add Urine Culture? No; Add Urine Microscopic? YES; Bacteria Urine 1+ /hpf; Bilirubin Urine 1+ (Negative); Leukocyte Esterase Urine Negative (Negative); Mucus Urine 1+ /hpf; Nitrate Urine Negative (Negative); RBC Urine 0-4 /hpf (0-2); Urobilinogen Urine 1 mg/dL (Negative); WBC Urine 0-4 /hpf (0-5)
[2023-12-17] MEDS: LORazepam 2 mg Tablet PO (07:40)
[2023-12-17 07:42] VITALS: BP 154/116
[2023-12-17 07:59] VITALS: BP 154/116; PULSE 87; RESP 16; TEMP 36.7; O2SAT 100
== END 2023-12-17 08:01 | disposition home or self-care (01) ==
PROVIDERS: Emergency Medicine; Emergency Provider Family Medicine
DX: F19.10 Other psychoactive substance abuse, uncomplicated (principal); I10 Essential (primary) hypertension
CPT/HCPCS: 80053; 80306; 81001; 83735; 85025; 99284; J7030

== ENCOUNTER 2025-08-28 12:00 | Outpatient (CLI) | payer MEDICAID, SELFPAY ==
--- NOTE | 2025-08-28 12:45 | USCV_ITS ---
Marysol Waters Age: 50 Gender: F : 1975 Exam Date: 08/28/2025 12:51 Ordering Phys: Trina Quiroga NP Technologist: Exam Location: [facility] [place] Indication: iv drug use BP: 130 / 75 HR: 60 Rhythm: Sinus Technical Quality: Adequate MEASUREMENTS (Male / Female) Normal Values 2D ECHO LV Diastolic Diameter PLAX 4.7 cm 4.2 - 5.9 / 3.9 - 5.3 cm IVS Diastolic Thickness 1.1 cm 0.6 - 1.0 / 0.6 - 0.9 cm IVS Systolic Thickness 1.6 cm LVPW Diastolic Thickness 1.1 cm 0.6 - 1.0 / 0.6 - 0.9 cm LVPW Systolic Thickness 1.9 cm LVOT Diameter 2.0 cm LV Ejection Fraction 2D Teich 65.7 % LV Ejection Fraction MOD 4C 56.5 % LV Ejection Fraction MOD 2C 65.0 % LV Ejection Fraction 2C AL 64.5 % LA Diameter 3.8 cm LA Sys Volume AL 60.4 cm cubed LA Sys Volume Index AL 26.3 cm cubed/m squared Aorta at Sinotubular Diameter 2.9 cm IVC Diameter 1.4 cm M-MODE LA Ao Ratio MM 1.6 AV Cusp Separation MM 2.4 cm DOPPLER AV Peak Velocity 144.0 cm/s LVOT Peak Velocity 96.0 cm/s AV Area Cont Eq vti 2.6 cm squared AV Area Cont Eq pk 2.2 cm squared MV Area PHT 3.9 cm squared Mitral E to A Ratio 1.1 TR Peak Velocity 174.0 cm/s TR Peak Gradient 12.1 mmHg PV Peak Velocity 127.0 cm/s FINDINGS Left Ventricle Normal left ventricular size and systolic function, EF 57%. No regional wall motion abnormalities. . Right Ventricle Normal right ventricular size and systolic function. Right Atrium Normal right atrial size. Left Atrium Mildly increased left atrial size. IA Septum Normal appearance of the interatrial septum. Mitral Valve No gross abnormalities noted Aortic Valve No gross abnormalities noted Tricuspid Valve Trace tricuspid valve regurgitation. Pulmonic Valve Pulmonic valve not well visualized. Pericardium No pericardial effusion. Aorta Normal aortic annulus size. IVC Normal inferior vena cava. CONCLUSIONS Normal left ventricular size and systolic function, EF 57%. No regional wall motion abnormalities. . Normal cardiac chamber sizes. Trace tricuspid valve regurgitation. Estimated pulmonary artery peak systolic pressure 15 mmHg There is no pericardial effusion. There are no intracardiac masses. No similar previous studies are available for comparison Dr Theodora Sahu MD [facility] (Electronically Signed) Final Date: 31 August 2025 08:35 S
== END 2025-08-28 12:01 | disposition home or self-care (01) ==
LOC: RAD 12:01
DX: R60.0 Localized edema (principal); F19.90 Other psychoactive substance use, unspecified, uncomplicated; I51.7 Cardiomegaly
CPT/HCPCS: 93306